=== PATIENT | male | born 1995 | race Caucasian/White ===

== ENCOUNTER 2018-12-01 10:00 | Emergency (ER) | payer OTHER ==
--- NOTE | 2018-12-01 12:37 | UC ---
Cardiac HPI - HPI Summary HPI Summary: 23-year-old male presents with complaints of chest tightness and feeling as if his heart was racing. States this occurred approximately at 8:15 this morning shortly after he arrived at work. States he had a sudden and overwhelming feeling of sadness and anxiety followed by the chest tightness and heart racing. States the episode lasted approximately 15-20 minutes and subsided on its own. Associated with some mild dizziness. He is presently symptom-free. Denies any previous episodes, recent stressors, significant caffeine intake, use of nicotine, alcohol or illicit drug use. Denies any family history of heart disease, dysrhythmias, depression, or anxiety. Patient is suicidal or homicidal. - History of Current Complaint Chief Complaint: UCChestPain Stated Complaint: TIGHT CHEST Time Seen by Provider: 12/01/18 12:30 Hx Obtained From: Patient Pain Intensity: 0 - Allergy/Home Medications Allergies/Adverse Reactions: Allergies Allergy/AdvReac Type Severity Reaction Status Date / Time No Known Allergies Allergy Verified 12/01/18 10:14 Home Medications: Home Medications NK [No Home Medications Reported] 12/01/18 [History Confirmed 12/01/18] PMH/Surg Hx/FS Hx/Imm Hx Previously Healthy: Yes - Denies significant PMH - Surgical History Surgical History: None - Family History Known Family History: Positive: Non-Contributory - Social History Occupation: Employed Part-time Lives: With Family Alcohol Use: None Substance Use Type: Marijuana Substance Use Comment - Amount & Last Used: Daily & 11/30/18 Smoking Status (MU): Never Smoked Tobacco Review of Systems All Other Systems Reviewed And Are Negative: Yes Constitutional: Negative: Fever, Chills Respiratory: Negative: Shortness Of Breath, Cough Cardiovascular: Positive: Palpitations, Chest Pain Gastrointestinal: Negative: Abdominal Pain, Vomiting, Diarrhea, Nausea Genitourinary: Positive: Negative Musculoskeletal: Positive: Negative Neurological: Negative: Headache, Weakness, Paresthesia, Numbness Psychological: Negative: Anxious, Depressed Is Patient Immunocompromised?: No Physical Exam - Summary Physical Exam Summary: GENERAL APPEARANCE: Well developed, well nourished, alert and cooperative, and appears to be in no acute distress. EYES: Conjunctiva clear. No drainage. EARS: External auditory canals and tympanic membranes clear, hearing grossly intact. NOSE: No nasal discharge. THROAT: Pharynx normal No tonsilar inflammation, swelling, exudate, or lesions. Uvula midline. Oral cavity normal. Teeth and gingiva in good general condition. NECK: Neck supple, non-tender without lymphadenopathy. CARDIAC: Normal S1 and S2. No S3, S4 or murmurs. Rhythm is regular. There is no peripheral edema, cyanosis or pallor. Extremities are warm and well perfused. Capillary refill is less than 2 seconds. Peripheral pulses intact. LUNGS: Clear to auscultation without rales, rhonchi, wheezing or diminished breath sounds. ABDOMEN: Positive bowel sounds. Soft, nondistended, nontender. No guarding or rebound. No masses or hepatosplenomegally. MUSKULOSKELETAL: ROM intact to all extremities. No joint erythema or tenderness. Normal muscular development. Normal gait. SKIN: Skin normal color, texture and turgor with no lesions or eruptions. Triage Information Reviewed: Yes Vital Signs: Initial Vital Signs Temp 98.4 F 12/01/18 10:12 Pulse 62 12/01/18 10:12 Resp 16 12/01/18 10:12 BP 132/63 12/01/18 10:12 Pulse Ox 100 12/01/18 10:12 Vital Signs Reviewed: Yes Diagnostics - EKG Cardiac Rate: NL - 60 Cardiac Rhythm: Sinus: Normal Ectopy: None ST Segment: Normal - Assessment/Plan Course Of Treatment: 23-year-old male presents with complaints of chest tightness and feeling as if his heart was racing. States this occurred approximately at 8:15 this morning shortly after he arrived at work. States he had a sudden and overwhelming feeling of sadness and anxiety followed by the chest tightness and heart racing. States the episode lasted approximately 15-20 minutes and subsided on its own. Associated with some mild dizziness. He is presently symptom-free. Denies any previous episodes, recent stressors, significant caffeine intake, use of nicotine, alcohol or illicit drug use. Denies any family history of heart disease, dysrhythmias, depression, or anxiety. Patient is suicidal or homicidal. Afebrile. Vital signs stable. Exam was overall unremarkable. Twelve-lead EKG showed normal sinus rhythm at a rate of 60 bpm without ectopy, ST elevation, or T-wave changes. Borderline IN interval shortening without delta waves. Discussed with patient results of the EKG as well as differential causes for his symptoms. I'm recommending that he follow up with his primary care provider this week for further testing. Anticipatory guidance and warning symptoms were reviewed with the patient. Verbalizes understanding and agrees with plan of care. - Differential Diagnoses - Palpitations Differential Diagnosis/HQI/PQRI: Panic Disorder, Other - Dysrhythmia, hyperthroidism - Clinical Impression Provider Diagnosis: Palpitations Discharge - Sign-Out/Discharge Documenting (check all that apply): Patient Departure All imaging exams completed and their final reports reviewed: No Studies - Discharge Plan Condition: Stable Disposition: HOME Patient Education Materials: Heart Palpitations (ED) Referrals: Becky Paige MD [Primary Care Provider] - 5 Days Additional Instructions: Your EKG and exam in the clinic today were normal. Your symptoms sound like a panic attack although I cannot fully rule another cause such as a heart dysrythmia or thyroid disease. I would recommend that you follow up with your primary care provider this week for further evaluation of your symptoms. Seek immediate medical attention in the emergency room if you have chest pain, feel as if your heart is racing or skipping beats, you become weak or dizzy, lose consciousness, or have any worsening of symptoms. - Billing Disposition and Condition Condition: STABLE Disposition: Home - Attestation Statements Provider Attestation: Per institutional requirements, I have reviewed the chart, however, I was not consulted specifically or made aware of this patient by the midlevel provider. I did not personally evaluate, interact with , or disposition this patient.
[2018-12-01 12:38] VITALS: BP 123/60
== END 2018-12-01 12:57 | disposition home or self-care (01) ==
LOC: UCCORT 10:00
DX: R00.2 Palpitations (principal); R07.89 Other chest pain; R42 Dizziness and giddiness
CPT/HCPCS: 93005; 99202; G0463